=== PATIENT | male | born 1980 | race Caucasian/White ===

== ENCOUNTER → 2019-12-03 | Outpatient (CLI) | payer MEDICARE ==
[2019-12-03 10:03] LABS: HEMATOCRIT 44.8 % (37.9-51.0); HEMOGLOBIN 14.7 g/dL (13.5-17.0); MEAN CORPUSCULAR HEMOGLOBIN 27.7 pg (27.0-33.4); MEAN CORPUSCULAR HGB CONC 32.9 g/dL (32.0-36.0); MEAN CORPUSCULAR VOLUME 84 fl (80-97); PLATELET COUNT 282 10^3/uL (150-450); RED BLOOD COUNT 5.32 10^6/uL (4.35-5.55); RED CELL DISTRIBUTION WIDTH 15.4 % (11.5-14.0); WHITE BLOOD COUNT 10.7 10^3/uL (4.0-10.5)
[2019-12-03 10:23] LABS: ALBUMIN 4.2 g/dL (3.5-5.0); ALKALINE PHOSPHATASE 165 U/L (38-126); ANION GAP 8 (5-19); ASPARTATE AMINO TRANSFERASE 39 U/L (17-59); BILIRUBIN,DIRECT 0.3 mg/dL (0.0-0.4); BILIRUBIN,TOTAL 0.5 mg/dL (0.2-1.3); BLOOD UREA NITROGEN 21 mg/dL (7-20); CALCIUM 9.5 mg/dL (8.4-10.2); CARBON DIOXIDE 26 mmol/L (22-30); CHLORIDE 107 mmol/L (98-107); GLUCOSE 68 mg/dL (75-110); POTASSIUM 4.5 mmol/L (3.6-5.0); TOTAL PROTEIN 8.1 g/dL (6.3-8.2)
--- NOTE | 2019-12-03 11:05 | RADIOLOGY REPORT (SQ) ---
EXAM DESCRIPTION: U/S ABDOMEN COMPLETE W/O DOP COMPLETED DATE/TIME: 12/03/2019 9:44 am REASON FOR STUDY: OTHER SPECIFIED DISEASES OF BILIARY TRACT (K83.8) K83.8 OTHER SPECIFIED DISEASES OF BILIARY TRACT COMPARISON: None. TECHNIQUE: Dynamic and static grayscale images acquired of the abdomen and recorded on PACS. Additio nal selected color Doppler and spectral images recorded. Note: Study does not meet criteria for complete doppler/duplex scan LIMITATIONS: None. FINDINGS: PANCREAS: The visualized portions of the pancreatic head appear normal. The pancreatic tanya dy and tail are obscured by overlying bowel. LIVER: Normal contour and echotexture. LIVER VASCULATURE: Hepatopetal directional flow within the portal veins. GALLBLADDER: The gallbladder is surgically absent. ULTRASOUND-DETECTED GREEN'S SIGN: Negative. INTRAHEPATIC DUCTS AND COMMON DUCT: The common bile duct measures 6 mm in diameter. There is no intr ahepatic bile duct dilatation. INFERIOR VENA CAVA: Patent. AORTA: No aneurysm. RIGHT KIDNEY: The right kidney measures 11.5 cm in length. There is a 11 mm calculus within the judy al pelvis. There is no hydronephrosis. LEFT KIDNEY: The left kidney measures 11 cm in length. There is a cyst in the interpolar portion of the kidney that measures 1 x 0.8 x 0.9 cm. There is no calcification or hydronephrosis. SPLEEN: The spleen measures 11.8 cm in length. PERITONEAL AND PLEURAL SPACES: No ascites or effusions. OTHER: No other finding. IMPRESSION: 1. Status post cholecystectomy. 2. 11 mm calculus within the right renal pelvis. There is no associated hydronephrosis. 3. 1 cm cyst in the interpolar portion of the left kidney. 4. Limited evaluation of the pancreas due to overlying bowel gas. TECHNICAL DOCUMENTATION: JOB ID: [id number] 2010 [employer]- All Rights Reserved Reading location - IP/workstation name: [email or web address]
== END ==
LOC: RAD 08:52
PROVIDERS: ATTEND Internal Medicine Gastroenterology
DX: K83.8 Other specified diseases of biliary tract (principal); N20.0 Calculus of kidney
CPT/HCPCS: 36415; 76700; 80048; 80076; 85027; 86038; 86235

== ENCOUNTER → 2020-02-19 | Outpatient (CLI) | payer MEDICARE ==
--- NOTE | 2020-02-19 09:29 | RADIOLOGY REPORT (SQ) ---
EXAM DESCRIPTION: CT ABD/PELVIS NO ORAL OR IV IMAGES COMPLETED DATE/TIME: 02/19/2020 9:05 am REASON FOR STUDY: (N20.0)CALCULUS OF KIDNEY N20.0 CALCULUS OF KIDNEY COMPARISON: 12/03/2019 ultrasound TECHNIQUE: CT scan of the abdomen and pelvis performed without intravenous or oral contrast. Images reviewed with lung, soft tissue, and bone windows. Reconstructed coronal and sagittal MPR images revi ewed. All images stored on PACS. All CT scanners at this facility use dose modulation, iterative reconstruction, and/or weight based d osing when appropriate to reduce radiation dose to as low as reasonably achievable (ALARA). [facility]: Dose Right [facility]: CareDose [facility]: Dose Right [facility]: Teradose 4D [facility]: Smart HipGeo RADIATION DOSE: CT Rad equipment meets quality standard of care and radiation dose reduction techniq ues were employed. CTDIvol: 6.0 mGy. DLP: 347 mGy-cm.mGy. LIMITATIONS: None. FINDINGS: LOWER CHEST: Minimal bibasilar atelectasis or scarring. NON-CONTRASTED LIVER, SPLEEN, ADRENALS: Evaluation limited by lack of IV contrast. Splenomegaly aryan uring 14.3 cm maximally. No identified significant masses. PANCREAS: Limited evaluation without intravenous contrast. No peripancreatic stranding. No definiti ve dilated duct. GALLBLADDER: Surgically absent. RIGHT KIDNEY AND URETER: No suspicious masses. Assessment limited by lack of IV contrast. There is a irregular stone within the renal pelvis measuring up to 2.1 x 1.0 cm (Hounsfield units greater than 900). Additional nonobstructing stone within the upper pole measuring 6 mm. No significant hydrour eteronephrosis. LEFT KIDNEY AND URETER: No suspicious masses. Assessment limited by lack of IV contrast. No signifi cant calcifications. No hydronephrosis or hydroureter. AORTA AND RETROPERITONEUM: No aneurysm. No retroperitoneal masses or adenopathy. BOWEL AND PERITONEAL CAVITY: Borderline enlarged portacaval node measuring 11 mm in short axis (serie s 3, image 21). Additional prominent mid mesenteric lymph nodes within the lower abdomen, largest me asuring 1.0 cm in short axis (series 3, image 56). 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 No evidence of intestinal obstruction. No focal bowel wall thickening. No free intraperitoneal gas. No ascites. APPENDIX: Surgically absent. PELVIS, BLADDER, AND ABDOMINAL WALL:Decompressed urinary bladder. No pelvic free fluid, adenopathy o r mass. Diastases recti. BONES: No acute bony abnormality. No suspicious osseous lesions. OTHER: No other significant finding. IMPRESSION: 1. Right-sided renal stones, largest within the renal pelvis measuring 2.1 x 1.0 cm. N o left renal stones. No significant hydronephrosis. 2. Enlarged portacaval and mesenteric lymph nodes measuring up to 1.0 cm in short axis. Findings no nspecific and may be reactive although lymphoproliferative or metastatic disease is not excluded. Re commend correlation with patient history and priors if available. Follow-up should be considered. 3. Splenomegaly measuring up to 14.3 cm, etiology uncertain. COMMENT: Quality ID # [id number]: Final reports with documentation of one or more dose reduction techniques (e.g., Automated exposure control, adjustment of the mA and/or kV according to patient size, use of iterative reconstruction technique) TECHNICAL DOCUMENTATION: JOB ID: [id number] 2010 [employer]- All Rights Reserved Reading location - IP/workstation name: [email or web address]
== END ==
LOC: RAD 08:32
PROVIDERS: ATTEND Urology
DX: N20.0 Calculus of kidney (principal)
CPT/HCPCS: 74176